=== PATIENT | male | born 1965 | race Hispanic/Latino ===

== ENCOUNTER 2017-03-20 12:50 | Emergency (ER) | payer OTHER, BC ==
[2017-03-20 12:57] VITALS: BP 154/80; PULSE 86; RESP 20; TEMP 98.3; O2SAT 99
[2017-03-20] MEDS ORDERED: Lidocaine 1% w Epi 1:100,000 Inj INJ STA (13:03)
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
== END 2017-03-20 16:22 | disposition home or self-care (01) ==
LOC: H.ER 12:50
DX: S01.01XA Laceration without foreign body of scalp, initial encounter (principal); V43.52XA Car driver injured in collision with other type car in traffic accident, initial encounter; Z88.0 Allergy status to penicillin

== ENCOUNTER 2017-04-03 13:38 | Emergency (ER) | payer OTHER, BC ==
[2017-04-03 13:43] VITALS: BP 153/92; PULSE 81; RESP 16; TEMP 98.5; O2SAT 99
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
== END 2017-04-03 14:16 | disposition home or self-care (01) ==
LOC: H.ER 13:38
DX: Z48.02 Encounter for removal of sutures (principal); Z88.0 Allergy status to penicillin